=== PATIENT | female | born 1945 | race Caucasian/White ===

== ENCOUNTER 2016-11-06 23:57 | Emergency (ER) | payer OTHER ==
[~2016-11-06] VITALS: Ht 162.6 cm; Wt 84.5 kg
[~2016-11-06 23:57] MED LIST: BACID1 CAP PO; CARAFATE1 GM PO; CELEXA20 MG PO; COLACE100 MG PO; HUMALOG100 UNIT/2 SC; LIORESAL10 MG PO; LOTENSIN20 MG PO; LOVENOX40 MG/0.4 SC; MILK OF MAGN PO; MIRALAX17 GM PO; NEURONTIN300 MG PO; REMEDY NUTRASHI59 ML TP; TOPROL XL25 MG PO; TYLENOL REGULA325 MG PO; VICODIN 5-3001 EACH PO; VOLTAREN 1% GE100 GM TP; ZOFRAN4 MG PO
[2016-11-07] MEDS ORDERED: BREO ELLIPTA I1 EACH IH (00:48)
[2016-11-07] MEDS ORDERED: ZITHROMAX Z-PA250 MG PO (00:48)
[2016-11-07] MEDS ORDERED: PROAIR HFA8.5 GM IH (00:48)
[2016-11-07 01:22] VITALS: BP 142/89
== END 2016-11-07 01:22 | disposition home or self-care (01) ==
LOC: EXP 23:57 → EME 23:57 → EXP 11-07 01:22
DX: J20.9 Acute bronchitis, unspecified (principal); J45.901 Unspecified asthma with (acute) exacerbation; Z76.0 Encounter for issue of repeat prescription; T48.6X6A Underdosing of antiasthmatics, initial encounter; Z91.128 Patient's intentional underdosing of medication regimen for other reason; F17.200 Nicotine dependence, unspecified, uncomplicated; E11.9 Type 2 diabetes mellitus without complications; Z79.4 Long term (current) use of insulin; K21.9 Gastro-esophageal reflux disease without esophagitis; F32.9 Major depressive disorder, single episode, unspecified; F41.9 Anxiety disorder, unspecified
CPT/HCPCS: 71020; 94640; 99281; 99284

== ENCOUNTER 2016-11-09 06:14 | Emergency (ER) | payer OTHER ==
[~2016-11-09] VITALS: Ht 162.6 cm; Wt 79.8 kg
[~2016-11-09 06:14] MED LIST changes: +BREO ELLIPTA I1 EACH IH; +PROAIR HFA8.5 GM IH; +ZITHROMAX Z-PA250 MG PO
[2016-11-09 07:07] LABS: ADD MIUA? NO; BILIRUBIN NEGATIVE; BLOOD NEGATIVE; COLOR YELLOW ((YELLOW)); GLUCOSE (STRIP) NEGATIVE; KETONES NEGATIVE; LEUKOCYTES NEGATIVE; NITRITE NEGATIVE; PROTEIN (STRIP) NEGATIVE; SPECIFIC GRAVITY 1.013 (1.000-1.030); UCUL ADDED? NO; UROBILINOGEN 0.2 MG/DL (0.2-1.0)
[2016-11-09 07:14] LABS: EOSINOPHIL (%) 3.1 % (0-5); EOSINOPHIL COUNT 0.3 K/uL (0-0.3); IMMATURE GRANULOCYTE (%) 0.5 % (0.0-0.7); IMMATURE GRANULOCYTE COUNT 0.1 K/uL; INSTRUMENT ABS NEUTROPHIL CT 6.4 K/uL; LYMPHOCYTE COUNT 2.2 K/uL (1.0-2.8); MCH 29.6 PG (29.0-34.0); MCHC 32.8 G/DL (30.0-36.0); MCV 90.2 FL (83-99); MEAN PLAT.VOLUME 12.1 uM^3 (9.5-12.4); MONOCYTE (%) 9.4 % (3-12); MONOCYTE COUNT 0.9 K/uL (0-0.8); NEUTROPHIL (%) 64.1 % (45-76); NEUTROPHIL COUNT 6.4 K/uL (1.8-6.4); PLATELET COUNT 211 K/uL (156-360); RBC DIS.WIDTH-CV 13.3 % (11.8-14.6); RBC DIS.WIDTH-SD 44.3 % (39-53); RED BLOOD COUNT 3.99 M/uL (3.80-5.20); WHITE BLOOD COUNT 9.9 K/uL (4.1-10.2)
[2016-11-09 07:48] LABS: ALKALINE PHOSPHATASE 95 IU/L (3-129); ANION GAP 4 MEQ/L (2-14); CHLORIDE 106 MEQ/L (99-109); GFR ESTIMATE (CALCULATED) > 59 mL/min/; GLUCOSE 158 mg/dL (70-99); POTASSIUM 5.6 MEQ/L (3.7-5.4); SAMPLE HEMOLYSIS CHECK 0; SAMPLE ICTERIC CHECK 0; SAMPLE LIPEMIA CHECK 0; SODIUM 136 MEQ/L (136-147); TOTAL BILIRUBIN 0.5 MG/DL (0.0-1.0); UREA NITROGEN (BUN) 14 mg/dL (9-23)
[2016-11-09 11:59] VITALS: BP 133/70
== END 2016-11-09 12:01 | disposition home health service (06) ==
LOC: EME 06:14
PROVIDERS: Emergency Medicine
DX: R53.1 Weakness (principal); I11.0 Hypertensive heart disease with heart failure; I50.9 Heart failure, unspecified; K21.9 Gastro-esophageal reflux disease without esophagitis; F41.9 Anxiety disorder, unspecified; F17.200 Nicotine dependence, unspecified, uncomplicated
CPT/HCPCS: 71020; 80053; 81003; 85025; 90832; 93005; 99281; 99284

== ENCOUNTER 2016-12-10 12:43 | Emergency (ER) | payer OTHER ==
[~2016-12-10] VITALS: Ht 162.6 cm; Wt 84.7 kg
[2016-12-10 13:00] VITALS: BP 128/60
[2016-12-10] MEDS ORDERED: PROCTOFOAM-HC10 GM PR ×2 (13:14→13:25)
== END 2016-12-10 13:28 | disposition home or self-care (01) ==
LOC: EME 12:43
DX: K64.4 Residual hemorrhoidal skin tags (principal); K64.8 Other hemorrhoids; Z88.2 Allergy status to sulfonamides; Z88.6 Allergy status to analgesic agent
CPT/HCPCS: 99281; 99283

== ENCOUNTER 2016-12-19 20:03 | Emergency (ER) | payer OTHER ==
[~2016-12-19] VITALS: Ht 162.6 cm; Wt 85.0 kg
[~2016-12-19 20:03] MED LIST changes: +PROCTOFOAM-HC10 GM PR
[2016-12-19 20:17] VITALS: BP 101/50
[2016-12-19] MEDS ORDERED: ANUSOL-HC21 GM PR (22:07)
== END 2016-12-19 22:30 | disposition home or self-care (01) ==
LOC: EME 20:03
DX: M79.604 Pain in right leg (principal); K64.4 Residual hemorrhoidal skin tags; I25.2 Old myocardial infarction; M06.9 Rheumatoid arthritis, unspecified; E11.9 Type 2 diabetes mellitus without complications; F17.200 Nicotine dependence, unspecified, uncomplicated; Z79.4 Long term (current) use of insulin
CPT/HCPCS: 73590; 99281; 99283

== ENCOUNTER 2017-02-22 22:17 | Emergency (ER) | payer OTHER ==
[~2017-02-22] VITALS: Ht 162.6 cm; Wt 81.3 kg
[~2017-02-22 22:17] MED LIST changes: +ANUSOL-HC21 GM PR
[2017-02-22 23:54] LABS: HEMATOCRIT 40.4 % (36.0-46.0); MCH 30.6 PG (29.0-34.0); MCHC 34.7 G/DL (30.0-36.0); MCV 88.2 FL (83-99); MEAN PLAT.VOLUME 12.3 uM^3 (9.5-12.4); PLATELET COUNT 184 K/uL (156-360); RBC DIS.WIDTH-CV 13.8 % (11.8-14.6); RBC DIS.WIDTH-SD 44.6 % (39-53); RED BLOOD COUNT 4.58 M/uL (3.80-5.20)
[2017-02-23 00:12] LABS: CHLORIDE 103 mEq/L (99-109); POTASSIUM 4.6 mEq/L (3.7-5.4); SODIUM 136 mEq/L (136-147)
[2017-02-23 00:15] LABS: GLUCOSE 140 mg/dL (70-99)
[2017-02-23 00:16] LABS: ANION GAP 7 MEQ/L (2-14); TOTAL BILIRUBIN 0.7 mg/dL (0.0-1.0)
[2017-02-23 00:18] LABS: ALKALINE PHOSPHATASE 54 IU/L (3-129); GFR ESTIMATE (CALCULATED) 58 mL/min/
[2017-02-23 00:19] LABS: UREA NITROGEN (BUN) 21 mg/dL (9-23)
[2017-02-23] MEDS ORDERED: ULTRACET1 TABLET PO (00:54)
[2017-02-23 01:54] VITALS: BP 148/86
[2017-02-23] MEDS ORDERED: UNABLE TO OBTAIN (01:55)
== END 2017-02-23 01:57 | disposition home or self-care (01) ==
LOC: EME 22:17
PROVIDERS: Physician Assistant
DX: G62.9 Polyneuropathy, unspecified (principal); G89.29 Other chronic pain; I50.9 Heart failure, unspecified; F17.200 Nicotine dependence, unspecified, uncomplicated; Z88.2 Allergy status to sulfonamides; Z88.8 Allergy status to other drugs, medicaments and biological substances
CPT/HCPCS: 80053; 81003; 85027; 99281; 99284

== ENCOUNTER 2017-04-11 03:28 | Emergency (ER) | payer OTHER ==
[~2017-04-11] VITALS: Ht 162.6 cm; Wt 84.8 kg
[~2017-04-11 03:28] MED LIST changes: +ULTRACET1 TABLET PO; +UNABLE TO OBTAIN
[2017-04-11] MEDS ORDERED: ULTRAM50 MG PO (07:20)
[2017-04-11 08:00] VITALS: BP 136/66
== END 2017-04-11 08:00 | disposition home or self-care (01) ==
LOC: EME 03:28
DX: M79.604 Pain in right leg (principal); I73.9 Peripheral vascular disease, unspecified; G89.29 Other chronic pain; I50.9 Heart failure, unspecified; F17.210 Nicotine dependence, cigarettes, uncomplicated; Z88.2 Allergy status to sulfonamides
CPT/HCPCS: 99281; 99284

== ENCOUNTER 2017-04-16 13:11 | Observation (INO) | payer OTHER ==
[~2017-04-16] VITALS: Ht 162.6 cm; Wt 88.8 kg
[~2017-04-16 13:11] MED LIST changes: +ULTRAM50 MG PO
[2017-04-16 16:01] LABS: APPEARANCE CLEAR ((CLEAR)); BILIRUBIN NEGATIVE; BLOOD NEGATIVE; COLOR STRAW ((YELLOW)); GLUCOSE (STRIP) NEGATIVE; KETONES NEGATIVE; LEUKOCYTES NEGATIVE; NITRITE NEGATIVE; PROTEIN (STRIP) NEGATIVE; SPECIFIC GRAVITY 1.008 (1.000-1.030); UROBILINOGEN 0.2 MG/DL (0.2-1.0)
[2017-04-16 16:10] LABS: HEMATOCRIT 40.2 % (36.0-46.0); MCH 31.1 PG (29.0-34.0); MCHC 34.8 G/DL (30.0-36.0); MCV 89.3 FL (83-99); PLATELET COUNT 231 K/uL (156-360); RBC DIS.WIDTH-CV 13.7 % (11.8-14.6); RBC DIS.WIDTH-SD 44.9 % (39-53); WHITE BLOOD COUNT 12.5 K/uL (4.1-10.2)
[2017-04-16 16:21] LABS: ALBUMIN 3.9 g/dL (3.2-4.8); CHLORIDE 102 mEq/L (99-109); SODIUM 138 mEq/L (136-147)
[2017-04-16 16:24] LABS: GLUCOSE 92 mg/dL (70-99); TOTAL PROTEIN 6.7 g/dL (6.4-8.3)
[2017-04-16 16:26] LABS: TOTAL BILIRUBIN 0.2 mg/dL (0.0-1.0)
[2017-04-16 16:27] LABS: ALKALINE PHOSPHATASE 59 IU/L (3-129); CREATININE 1.6 mg/dL (0.6-1.3); GFR ESTIMATE (CALCULATED) 34 mL/min/
[2017-04-16 16:28] LABS: UREA NITROGEN (BUN) 24 mg/dL (9-23)
[2017-04-16 16:29] LABS: AST (GOT) 17 IU/L (2-34)
[2017-04-16 16:30] LABS: ALT (GPT) 9 IU/L (3-49)
[2017-04-16] MEDS ORDERED: VENTOLIN HFA18 GM IH (17:37)
[2017-04-16] MEDS ORDERED: BREO ELLIPTA I1 EACH IH (17:39)
[2017-04-16] MEDS ORDERED: CYMBALTA60 MG PO (17:41)
[2017-04-16] MEDS ORDERED: LEVEMIR100 UNIT/2 SC (17:41)
[2017-04-16] MEDS ORDERED: MYCOSTATIN1 APPLICAT TP (17:42)
[2017-04-16] MEDS ORDERED: LISINOPRIL10 MG PO (17:42)
[2017-04-16] MEDS ORDERED: OXYCODONE HCL5 MG PO (17:42)
[2017-04-16] MEDS ORDERED: VOLTAREN50 MG PO (17:42)
[2017-04-16] MEDS ORDERED: TRAZODONE HCL50 MG PO (17:42)
[2017-04-16 22:21] VITALS: BP 132/60
[2017-04-17 00:35] VITALS: BP 130/59
[2017-04-17 03:48] VITALS: BP 124/56
[2017-04-17 06:04] VITALS: BP 129/69
[2017-04-17 07:18] LABS: C-REACTIVE PROTEIN 6.6 MG/L (0-10); CHLORIDE 106 MEQ/L (99-109); GFR ESTIMATE (CALCULATED) 52 mL/min/; MAGNESIUM 2.1 mg/dl (1.3-2.7); POTASSIUM 5.3 MEQ/L (3.7-5.4); SODIUM 139 MEQ/L (136-147); UREA NITROGEN (BUN) 20 mg/dL (9-23)
[2017-04-17 07:19] LABS: CREATININE 1.1 MG/DL (0.6-1.3); GLUCOSE 160 mg/dL (70-99)
[2017-04-17 11:43] VITALS: BP 122/62
[2017-04-17] MEDS ORDERED: BACLOFEN10 MG PO (13:28)
[2017-04-17] MEDS ORDERED: GABAPENTIN600 MG PO (13:28)
[2017-04-18 09:56] LABS: HEMOGLOBIN A1c (GLYCOHEMOGLOB) 6.6 % (Below 5.7)
== END 2017-04-17 14:30 | disposition home or self-care (01) ==
LOC: EME 13:11 → EDOF 19:28 → ENRESERV 19:35 → 5WEST 20:50
PROVIDERS: Internal Medicine; Nurse Practitioner Family; Physician Assistant Medical
DX: E87.5 Hyperkalemia (principal); N17.9 Acute kidney failure, unspecified; E86.0 Dehydration; I12.9 Hypertensive chronic kidney disease with stage 1 through stage 4 chronic kidney disease, or unspecified chronic kidney disease; N18.4 Chronic kidney disease, stage 4 (severe); L40.50 Arthropathic psoriasis, unspecified; B35.6 Tinea cruris; E11.22 Type 2 diabetes mellitus with diabetic chronic kidney disease; E11.649 Type 2 diabetes mellitus with hypoglycemia without coma; G89.29 Other chronic pain; R26.89 Other abnormalities of gait and mobility; F17.210 Nicotine dependence, cigarettes, uncomplicated; E11.40 Type 2 diabetes mellitus with diabetic neuropathy, unspecified; E11.319 Type 2 diabetes mellitus with unspecified diabetic retinopathy without macular edema; I73.9 Peripheral vascular disease, unspecified; E03.9 Hypothyroidism, unspecified; K21.9 Gastro-esophageal reflux disease without esophagitis; F32.9 Major depressive disorder, single episode, unspecified; F41.9 Anxiety disorder, unspecified; Z79.4 Long term (current) use of insulin; Z88.1 Allergy status to other antibiotic agents; Z88.2 Allergy status to sulfonamides; I25.10 Atherosclerotic heart disease of native coronary artery without angina pectoris; E78.5 Hyperlipidemia, unspecified; M81.0 Age-related osteoporosis without current pathological fracture; E55.9 Vitamin D deficiency, unspecified; Z90.710 Acquired absence of both cervix and uterus
CPT/HCPCS: 72131; 80048; 80053; 81003; 82948; 83036; 83735; 85027; 85651; 86140; 93005; 94640; 94640 76; 99202; G0378; G8978 GP CJ; G8979 GP CI; G8980 CJ; G8987 GO CJ; G8988 CI; G8989 CJ; J7030; J7512

== ENCOUNTER 2017-05-07 07:06 | Emergency (ER) | payer OTHER ==
[~2017-05-07] VITALS: Ht 162.6 cm; Wt 62.7 kg
[~2017-05-07 07:06] MED LIST changes: +BACLOFEN10 MG PO; +CYMBALTA60 MG PO; +GABAPENTIN600 MG PO; +LEVEMIR100 UNIT/2 SC; +LISINOPRIL10 MG PO; +MYCOSTATIN1 APPLICAT TP; +OXYCODONE HCL5 MG PO; +TRAZODONE HCL50 MG PO; +VENTOLIN HFA18 GM IH; +VOLTAREN50 MG PO
[2017-05-07 08:00] LABS: BASOPHIL (%) 0.7 % (0-1); BASOPHIL COUNT 0.1 K/uL (0-0.1); EOSINOPHIL (%) 3.2 % (0-5); EOSINOPHIL COUNT 0.3 K/uL (0-0.3); HEMATOCRIT 38.1 % (36.0-46.0); HEMOGLOBIN 13.2 G/DL (11.9-15.5); IMMATURE GRANULOCYTE (%) 0.4 % (0.0-0.7); LYMPHOCYTE (%) 23.8 % (15-42); LYMPHOCYTE COUNT 2.3 K/uL (1.0-2.8); MCH 30.6 PG (29.0-34.0); MCHC 34.6 G/DL (30.0-36.0); MCV 88.2 FL (83-99); MONOCYTE (%) 7.6 % (3-12); MONOCYTE COUNT 0.7 K/uL (0-0.8); NEUTROPHIL (%) 64.3 % (45-76); NEUTROPHIL COUNT 6.2 K/uL (1.8-6.4); PLATELET COUNT 231 K/uL (156-360); RBC DIS.WIDTH-CV 13.6 % (11.8-14.6); RBC DIS.WIDTH-SD 43.8 % (39-53); RED BLOOD COUNT 4.32 M/uL (3.80-5.20); WHITE BLOOD COUNT 9.7 K/uL (4.1-10.2)
[2017-05-07 08:12] LABS: CHLORIDE 101 mEq/L (99-109); POTASSIUM 4.8 mEq/L (3.7-5.4); SODIUM 136 mEq/L (136-147)
[2017-05-07 08:14] LABS: GLUCOSE 166 mg/dL (70-99)
[2017-05-07 08:18] LABS: GFR ESTIMATE (CALCULATED) 58 mL/min/
[2017-05-07 08:19] LABS: UREA NITROGEN (BUN) 20 mg/dL (9-23)
[2017-05-07] MEDS ORDERED: PERCOCET 5/31 TABLET PO ×2 (10:23→10:26)
[2017-05-07 11:14] VITALS: BP 140/76
== END 2017-05-07 11:14 | disposition home or self-care (01) ==
LOC: EME 07:06
PROVIDERS: Emergency Medicine
DX: S70.01XA Contusion of right hip, initial encounter (principal); M16.0 Bilateral primary osteoarthritis of hip; I25.2 Old myocardial infarction; I11.0 Hypertensive heart disease with heart failure; I50.9 Heart failure, unspecified; K21.9 Gastro-esophageal reflux disease without esophagitis; J45.909 Unspecified asthma, uncomplicated; I73.9 Peripheral vascular disease, unspecified; G62.9 Polyneuropathy, unspecified; L40.50 Arthropathic psoriasis, unspecified; F41.9 Anxiety disorder, unspecified; F32.9 Major depressive disorder, single episode, unspecified; F17.200 Nicotine dependence, unspecified, uncomplicated; W07.XXXA Fall from chair, initial encounter; Z79.4 Long term (current) use of insulin; Z88.2 Allergy status to sulfonamides; Z88.1 Allergy status to other antibiotic agents
CPT/HCPCS: 71045; 73502; 80048; 81003; 85025; 93005; 99281; 99284; G8978 GP CI; G8979 GP CH; G8987 GO CI; G8988 GO CH; J2270

== ENCOUNTER 2017-05-20 16:28 | Emergency (ER) | payer OTHER ==
[~2017-05-20] VITALS: Ht 162.6 cm; Wt 80.9 kg
[~2017-05-20 16:28] MED LIST changes: +PERCOCET 5/31 TABLET PO
[2017-05-20 17:39] LABS: HEMATOCRIT 38.6 % (36.0-46.0); HEMOGLOBIN 13.9 G/DL (11.9-15.5); MCH 30.7 PG (29.0-34.0); MCV 85.2 FL (83-99); PLATELET COUNT 242 K/uL (156-360); RBC DIS.WIDTH-SD 40.4 % (39-53); RED BLOOD COUNT 4.53 M/uL (3.80-5.20); WHITE BLOOD COUNT 12.1 K/uL (4.1-10.2)
[2017-05-20 17:52] LABS: ALBUMIN 3.9 g/dL (3.2-4.8)
[2017-05-20 17:53] LABS: CHLORIDE 98 mEq/L (99-109); SODIUM 132 mEq/L (136-147)
[2017-05-20 17:55] LABS: GLUCOSE 117 mg/dL (70-99); TOTAL PROTEIN 6.3 g/dL (6.4-8.3)
[2017-05-20 17:57] LABS: TOTAL BILIRUBIN 0.5 mg/dL (0.0-1.0)
[2017-05-20 17:58] LABS: ALKALINE PHOSPHATASE 132 IU/L (3-129)
[2017-05-20 17:59] LABS: CREATININE 1.3 mg/dL (0.6-1.3); GFR ESTIMATE (CALCULATED) 43 mL/min/
[2017-05-20 18:00] LABS: AST (GOT) 17 IU/L (2-34); UREA NITROGEN (BUN) 30 mg/dL (9-23)
[2017-05-20 18:01] LABS: ALT (GPT) 9 IU/L (3-49)
[2017-05-20 18:02] LABS: LIPASE 6 U/L (1.0-51.0)
[2017-05-20] MEDS ORDERED: CIPRO500 MG PO (19:11)
[2017-05-20] MEDS ORDERED: LOPERAMIDE2 MG PO (19:11)
[2017-05-20] MEDS ORDERED: LEVEMIR100 UNIT/2 SC (19:17)
[2017-05-20] MEDS ORDERED: DULOXETINE HCL60 MG PO (19:17)
[2017-05-20] MEDS ORDERED: OXAYDO5 MG PO (19:19)
[2017-05-20] MEDS ORDERED: TRAZODONE HCL50 MG PO ×2 (19:19→19:20)
[2017-05-20] MEDS ORDERED: DICLOFENAC SODI50 MG PO (19:20)
[2017-05-20] MEDS ORDERED: NYSTATIN15 GM TP (19:20)
[2017-05-20] MEDS ORDERED: NEURONTIN600 MG PO (19:21)
[2017-05-20] MEDS ORDERED: METOPROLOL SUCC25 MG PO (19:22)
[2017-05-20] MEDS ORDERED: HUMALOG100 UNIT/2 SC (19:23)
[2017-05-20] MEDS ORDERED: MIRALAX17 GM PO (19:23)
[2017-05-20] MEDS ORDERED: BREO ELLIPTA I1 EACH IH (19:24)
[2017-05-20] MEDS ORDERED: VENTOLIN HFA18 GM IH (19:24)
[2017-05-20 21:08] VITALS: BP 145/60
== END 2017-05-20 21:10 | disposition home or self-care (01) ==
LOC: EME 16:28
PROVIDERS: Emergency Medicine Emergency Medical Services
DX: K52.9 Noninfective gastroenteritis and colitis, unspecified (principal); E86.0 Dehydration; K57.30 Diverticulosis of large intestine without perforation or abscess without bleeding; K64.4 Residual hemorrhoidal skin tags; I10 Essential (primary) hypertension; J45.909 Unspecified asthma, uncomplicated; Z79.4 Long term (current) use of insulin; F17.200 Nicotine dependence, unspecified, uncomplicated
CPT/HCPCS: 74177; 80053; 81003; 83690; 85027; 99281; 99285; J2270

== ENCOUNTER 2017-05-25 11:23 | Inpatient (IN) | payer OTHER ==
[~2017-05-25] VITALS: Ht 162.6 cm; Wt 86.6 kg
[~2017-05-25 11:23] MED LIST changes: +CIPRO500 MG PO; +DICLOFENAC SODI50 MG PO; +DULOXETINE HCL60 MG PO; +LOPERAMIDE2 MG PO; +METOPROLOL SUCC25 MG PO; +NEURONTIN600 MG PO; +NYSTATIN15 GM TP; +OXAYDO5 MG PO
[2017-05-25] MEDS ORDERED: METHOCARBAMOL750 MG PO (14:54)
[2017-05-25 16:52] VITALS: BP 166/71
[2017-05-25 18:32] LABS: HEMATOCRIT 40.2 % (36.0-46.0); HEMOGLOBIN 13.6 G/DL (11.9-15.5); MCHC 33.8 G/DL (30.0-36.0); MCV 88.5 FL (83-99); PLATELET COUNT 235 K/uL (156-360); RBC DIS.WIDTH-CV 13.4 % (11.8-14.6); RBC DIS.WIDTH-SD 43.8 % (39-53); RED BLOOD COUNT 4.54 M/uL (3.80-5.20); WHITE BLOOD COUNT 10.3 K/uL (4.1-10.2)
[2017-05-25 18:55] LABS: ALKALINE PHOSPHATASE 100 IU/L (3-129); ALT (GPT) 7 IU/L (3-49); AST (GOT) 13 IU/L (2-34); CHLORIDE 102 MEQ/L (99-109); GFR ESTIMATE (CALCULATED) 58 mL/min/; GLUCOSE 135 mg/dL (70-99); POTASSIUM 4.4 MEQ/L (3.7-5.4); SODIUM 137 MEQ/L (136-147); TOTAL BILIRUBIN 0.5 MG/DL (0.0-1.0); TOTAL PROTEIN 6.1 G/DL (6.4-8.3); UREA NITROGEN (BUN) 22 mg/dL (9-23)
[2017-05-25 19:44] VITALS: BP 129/60
[2017-05-26 00:02] VITALS: BP 140/75
[2017-05-26 02:48] VITALS: BP 116/56
[2017-05-26 08:16] VITALS: BP 160/54
[2017-05-26 12:34] VITALS: BP 171/76
[2017-05-26 16:00] VITALS: BP 131/74
[2017-05-27 00:11] VITALS: BP 138/63
[2017-05-27 09:06] VITALS: BP 120/57
[2017-05-27 13:12] VITALS: BP 152/69
[2017-05-27 16:06] VITALS: BP 145/82
[2017-05-27 23:34] VITALS: BP 129/59
[2017-05-28 07:59] LABS: HEMATOCRIT 42.3 % (36.0-46.0); HEMOGLOBIN 14.1 G/DL (11.9-15.5); MCH 29.6 PG (29.0-34.0); MCHC 33.3 G/DL (30.0-36.0); MCV 88.9 FL (83-99); PLATELET COUNT 228 K/uL (156-360); RBC DIS.WIDTH-CV 13.3 % (11.8-14.6); RBC DIS.WIDTH-SD 43.7 % (39-53); RED BLOOD COUNT 4.76 M/uL (3.80-5.20); WHITE BLOOD COUNT 8.4 K/uL (4.1-10.2)
[2017-05-28 08:12] VITALS: BP 157/69
[2017-05-28 08:24] LABS: CHLORIDE 99 MEQ/L (99-109); CREATININE 1.1 MG/DL (0.6-1.3); GFR ESTIMATE (CALCULATED) 52 mL/min/; GLUCOSE 172 mg/dL (70-99); POTASSIUM 4.7 MEQ/L (3.7-5.4); SODIUM 133 MEQ/L (136-147); UREA NITROGEN (BUN) 22 mg/dL (9-23)
[2017-05-28 11:23] LABS: BILIRUBIN NEGATIVE; BLOOD NEGATIVE; COLOR YELLOW ((YELLOW)); GLUCOSE (STRIP) NEGATIVE; KETONES NEGATIVE; LEUKOCYTES NEGATIVE; NITRITE NEGATIVE; PROTEIN (STRIP) NEGATIVE; UROBILINOGEN 0.2 MG/DL (0.2-1.0)
[2017-05-28 11:29] LABS: APPEARANCE CLEAR ((CLEAR)); UCUL ADDED? NO
[2017-05-28 15:34] VITALS: BP 148/68; BP 159/70
[2017-05-29 01:25] VITALS: BP 160/70
[2017-05-29 07:40] VITALS: BP 127/61
[2017-05-29 16:05] VITALS: BP 138/64
[2017-05-30 04:38] LABS: HEMATOCRIT 40.6 % (36.0-46.0); HEMOGLOBIN 13.9 G/DL (11.9-15.5); MCHC 34.2 G/DL (30.0-36.0); MCV 87.7 FL (83-99); PLATELET COUNT 199 K/uL (156-360); RBC DIS.WIDTH-CV 13.2 % (11.8-14.6); RBC DIS.WIDTH-SD 42.5 % (39-53); RED BLOOD COUNT 4.63 M/uL (3.80-5.20); WHITE BLOOD COUNT 9.2 K/uL (4.1-10.2)
[2017-05-30 05:05] LABS: CHLORIDE 100 mEq/L (99-109); POTASSIUM 4.7 mEq/L (3.7-5.4); SODIUM 136 mEq/L (136-147)
[2017-05-30 05:06] LABS: GLUCOSE 153 mg/dL (70-99)
[2017-05-30 05:10] LABS: CREATININE 1.2 mg/dL (0.6-1.3); GFR ESTIMATE (CALCULATED) 47 mL/min/
[2017-05-30 05:11] LABS: UREA NITROGEN (BUN) 30 mg/dL (9-23)
[2017-05-30 07:46] VITALS: BP 162/70
[2017-05-30 15:33] VITALS: BP 167/67
[2017-05-31 01:31] VITALS: BP 130/63
[2017-05-31 05:34] VITALS: BP 136/65
[2017-05-31 08:21] VITALS: BP 166/72
== END 2017-05-31 11:37 | disposition left against medical advice (07) | DRG 552 ==
LOC: EME 11:23 → EDOF 14:13 → 3EAST 14:13 → ENRESERV 14:17 → EDOF 14:32 → ENRESERV 14:51 → 3EAST 16:40
PROVIDERS: Hospitalist; Physician Assistant
DX: M48.061 Spinal stenosis, lumbar region without neurogenic claudication (principal); M51.26 Other intervertebral disc displacement, lumbar region; M51.46 Schmorl's nodes, lumbar region; I11.9 Hypertensive heart disease without heart failure; I25.10 Atherosclerotic heart disease of native coronary artery without angina pectoris; F43.25 Adjustment disorder with mixed disturbance of emotions and conduct; F43.23 Adjustment disorder with mixed anxiety and depressed mood; E11.40 Type 2 diabetes mellitus with diabetic neuropathy, unspecified; E11.51 Type 2 diabetes mellitus with diabetic peripheral angiopathy without gangrene; Z79.4 Long term (current) use of insulin; E03.9 Hypothyroidism, unspecified; E78.5 Hyperlipidemia, unspecified; F17.210 Nicotine dependence, cigarettes, uncomplicated; F60.9 Personality disorder, unspecified; F91.9 Conduct disorder, unspecified; G31.84 Mild cognitive impairment of uncertain or unknown etiology; Z91.19 Patient's noncompliance with other medical treatment and regimen
CPT/HCPCS: 71250; 72149; 72158; 80048; 80053; 81003; 82948; 85027; 93971; 94640; 94640 76; 99202; 99281; 99285; A6214; J1630; J1650; J1815; J3010

== ENCOUNTER 2017-06-08 12:20 | Emergency (ER) | payer OTHER ==
[~2017-06-08] VITALS: Ht 162.6 cm; Wt 87.5 kg
[~2017-06-08 12:20] MED LIST changes: +METHOCARBAMOL750 MG PO
[2017-06-08] MEDS ORDERED: PERCOCET 5/31 TABLET PO (14:17)
[2017-06-08 16:07] VITALS: BP 133/61
== END 2017-06-08 16:21 | disposition home or self-care (01) ==
LOC: EME 12:20
PROC: 2W3QX1Z Immobilization of Right Lower Leg using Splint (ICD-10-PCS; principal; 2017-06-08)
DX: S92.354A Nondisplaced fracture of fifth metatarsal bone, right foot, initial encounter for closed fracture (principal); M25.551 Pain in right hip; M25.552 Pain in left hip; M54.5 Low back pain; W18.30XA Fall on same level, unspecified, initial encounter; Y92.531 Health care provider office as the place of occurrence of the external cause; I11.0 Hypertensive heart disease with heart failure; I50.9 Heart failure, unspecified; K21.9 Gastro-esophageal reflux disease without esophagitis; E11.9 Type 2 diabetes mellitus without complications; J45.909 Unspecified asthma, uncomplicated; G62.9 Polyneuropathy, unspecified; I73.9 Peripheral vascular disease, unspecified; F41.9 Anxiety disorder, unspecified; F32.9 Major depressive disorder, single episode, unspecified; F17.200 Nicotine dependence, unspecified, uncomplicated; Z79.4 Long term (current) use of insulin; Z88.2 Allergy status to sulfonamides; Z88.8 Allergy status to other drugs, medicaments and biological substances
CPT/HCPCS: 71045; 72100; 73502; 73630; 99281; 99285; G8987 GO CL; G8988 GO CK

== ENCOUNTER 2017-08-01 23:27 | Emergency (ER) | payer OTHER ==
[~2017-08-01] VITALS: Ht 162.6 cm; Wt 89.1 kg
[2017-08-02 00:46] LABS: HEMATOCRIT 40.2 % (36.0-46.0); HEMOGLOBIN 13.9 G/DL (11.9-15.5); MCH 30.5 PG (29.0-34.0); MCHC 34.6 G/DL (30.0-36.0); MCV 88.2 FL (83-99); PLATELET COUNT 161 K/uL (156-360); RBC DIS.WIDTH-CV 13.3 % (11.8-14.6); RBC DIS.WIDTH-SD 43.1 % (39-53); RED BLOOD COUNT 4.56 M/uL (3.80-5.20); WHITE BLOOD COUNT 12.5 K/uL (4.1-10.2)
[2017-08-02 01:08] LABS: CHLORIDE 102 mEq/L (99-109); POTASSIUM 4.5 mEq/L (3.7-5.4); SODIUM 137 mEq/L (136-147)
[2017-08-02 01:10] LABS: GLUCOSE 120 mg/dL (70-99)
[2017-08-02 01:11] LABS: TOTAL PROTEIN 6.5 g/dL (6.4-8.3)
[2017-08-02 01:12] LABS: TOTAL BILIRUBIN 0.4 mg/dL (0.0-1.0)
[2017-08-02 01:14] LABS: ALKALINE PHOSPHATASE 64 IU/L (3-129); CREATININE 1.1 mg/dL (0.6-1.3); GFR ESTIMATE (CALCULATED) 52 mL/min/
[2017-08-02 01:15] LABS: UREA NITROGEN (BUN) 20 mg/dL (9-23)
[2017-08-02 01:16] LABS: AST (GOT) 14 IU/L (2-34); DIRECT BILIRUBIN 0.2 mg/dL (0.0-0.3)
[2017-08-02 01:17] LABS: ALT (GPT) 9 IU/L (3-49)
[2017-08-02 01:18] LABS: LIPASE 5 U/L (1.0-51.0)
[2017-08-02 01:21] LABS: APPEARANCE CLEAR ((CLEAR)); BILIRUBIN NEGATIVE; BLOOD SMALL; COLOR STRAW ((YELLOW)); GLUCOSE (STRIP) NEGATIVE; KETONES NEGATIVE; LEUKOCYTES NEGATIVE; NITRITE NEGATIVE; PROTEIN (STRIP) NEGATIVE; SPECIFIC GRAVITY 1.004 (1.000-1.030); UROBILINOGEN 0.2 MG/DL (0.2-1.0)
[2017-08-02 01:23] LABS: BACTERIA RARE /HPF; EPITHELIAL CELLS RARE /HPF; MUCUS TRACE /LPF; RED BLOOD CELLS 0-5 /HPF (0-5); UCUL ADDED? NO; WHITE BLOOD CELLS 0-5 /HPF (0-5)
[2017-08-02 02:30] VITALS: BP 124/55
[2017-08-02 08:10] LABS: THYROTROPIN (TSH) 1.5 MIU/L (0.4-5.5)
[2017-08-02 09:30] LABS: HEMOGLOBIN A1c (GLYCOHEMOGLOB) 6.6 % (Below 5.7)
== END 2017-08-02 04:23 | disposition home or self-care (01) ==
LOC: EME 23:27
PROVIDERS: Emergency Medicine
DX: M79.89 Other specified soft tissue disorders (principal); E86.0 Dehydration; K57.30 Diverticulosis of large intestine without perforation or abscess without bleeding; K86.1 Other chronic pancreatitis; E11.40 Type 2 diabetes mellitus with diabetic neuropathy, unspecified; Z79.4 Long term (current) use of insulin; I10 Essential (primary) hypertension; I73.9 Peripheral vascular disease, unspecified; J45.909 Unspecified asthma, uncomplicated; L40.50 Arthropathic psoriasis, unspecified; K21.9 Gastro-esophageal reflux disease without esophagitis; F41.9 Anxiety disorder, unspecified; F32.9 Major depressive disorder, single episode, unspecified; F17.200 Nicotine dependence, unspecified, uncomplicated; Z88.2 Allergy status to sulfonamides; Z88.8 Allergy status to other drugs, medicaments and biological substances
CPT/HCPCS: 71045; 74176; 80048; 80076; 81003; 83036; 83690; 84443; 85027; 87086

== ENCOUNTER 2017-08-24 07:01 | Emergency (ER) | payer OTHER ==
[~2017-08-24] VITALS: Ht 162.6 cm; Wt 87.0 kg
[2017-08-24] MEDS ORDERED: FLEXERIL10 MG PO (10:25)
[2017-08-24 11:07] VITALS: BP 108/70
== END 2017-08-24 11:08 | disposition home or self-care (01) ==
LOC: EME 07:01
DX: M54.41 Lumbago with sciatica, right side (principal); Z91.81 History of falling; K21.9 Gastro-esophageal reflux disease without esophagitis; J45.909 Unspecified asthma, uncomplicated; E11.40 Type 2 diabetes mellitus with diabetic neuropathy, unspecified; I10 Essential (primary) hypertension; L40.50 Arthropathic psoriasis, unspecified; F41.9 Anxiety disorder, unspecified; F32.9 Major depressive disorder, single episode, unspecified; Z90.710 Acquired absence of both cervix and uterus; Z88.2 Allergy status to sulfonamides; Z88.1 Allergy status to other antibiotic agents
CPT/HCPCS: 72100; 73502; 99281; 99284

== ENCOUNTER 2017-11-01 22:13 | Inpatient (IN) | payer OTHER ==
[~2017-11-01] VITALS: Ht 162.6 cm; Wt 94.0 kg
[~2017-11-01 22:13] MED LIST changes: +FLEXERIL10 MG PO
[2017-11-01 22:39] LABS: HEMOGLOBIN 14.2 G/DL (11.9-15.5); MCH 30.4 PG (29.0-34.0); MCHC 34.6 G/DL (30.0-36.0); MCV 87.8 FL (83-99); RBC DIS.WIDTH-CV 13.7 % (11.8-14.6); RBC DIS.WIDTH-SD 44.2 % (39-53); RED BLOOD COUNT 4.67 M/uL (3.80-5.20); WHITE BLOOD COUNT 12.6 K/uL (4.1-10.2)
[2017-11-01 22:46] LABS: CHLORIDE 98 mEq/L (99-109); POTASSIUM 4.4 mEq/L (3.7-5.4); SODIUM 136 mEq/L (136-147)
[2017-11-01 22:48] LABS: GLUCOSE 121 mg/dL (70-99)
[2017-11-01 22:52] LABS: CREATININE 1.1 mg/dL (0.6-1.3); GFR ESTIMATE (CALCULATED) 52 mL/min/
[2017-11-01 22:53] LABS: UREA NITROGEN (BUN) 22 mg/dL (9-23)
[2017-11-01 23:21] LABS: PLAT.SUFFICIENCY ADEQUATE; PLATELET COUNT 183 K/uL (156-360)
[2017-11-02] VITALS (7 sets, daily range): BP systolic 124–191; BP diastolic 60–86
[2017-11-02] MEDS ORDERED: OXYCODONE-APAP1 EAC6 PO (11:47)
[2017-11-02] MEDS ORDERED: ZANAFLEX4 M1 PO (11:48)
[2017-11-03 03:03] VITALS: BP 177/78
[2017-11-03 06:26] LABS: BASOPHIL (%) 0.1 % (0-1); EOSINOPHIL (%) 0 % (0-5); HEMOGLOBIN 13.1 G/DL (11.9-15.5); IMMATURE GRANULOCYTE (%) 0.8 % (0.0-0.7); LYMPHOCYTE (%) 6.8 % (15-42); LYMPHOCYTE COUNT 1.3 K/uL (1.0-2.8); MCH 30.1 PG (29.0-34.0); MCHC 34.5 G/DL (30.0-36.0); MCV 87.4 FL (83-99); MONOCYTE (%) 5.1 % (3-12); NEUTROPHIL (%) 87.2 % (45-76); NEUTROPHIL COUNT 16.1 K/uL (1.8-6.4); PLATELET COUNT 172 K/uL (156-360); RBC DIS.WIDTH-CV 13.8 % (11.8-14.6); RBC DIS.WIDTH-SD 44.1 % (39-53); RED BLOOD COUNT 4.35 M/uL (3.80-5.20); WHITE BLOOD COUNT 18.5 K/uL (4.1-10.2)
[2017-11-03 06:44] LABS: ALBUMIN 3.8 G/DL (3.2-4.8); ALKALINE PHOSPHATASE 45 IU/L (3-129); ALT (GPT) 6 IU/L (3-49); AST (GOT) 10 IU/L (2-34); CHLORIDE 98 MEQ/L (99-109); CREATININE 1.1 MG/DL (0.6-1.3); GFR ESTIMATE (CALCULATED) 52 mL/min/; POTASSIUM 4.5 MEQ/L (3.7-5.4); SODIUM 134 MEQ/L (136-147); TOTAL BILIRUBIN 0.5 MG/DL (0.0-1.0); TOTAL PROTEIN 5.8 G/DL (6.4-8.3); UREA NITROGEN (BUN) 29 mg/dL (9-23)
[2017-11-03 06:48] LABS: GLUCOSE 329 mg/dL (70-99)
[2017-11-03 13:01] LABS: HEMOGLOBIN A1c (GLYCOHEMOGLOB) 6.9 % (Below 5.7)
== END 2017-11-03 06:33 | disposition left against medical advice (07) | DRG 190 ==
LOC: EME → EDBD 22:13 → EDOF 11-02 00:34 → 5EAST 11-02 00:34
PROVIDERS: Emergency Medicine; Hospitalist
DX: J44.1 Chronic obstructive pulmonary disease with (acute) exacerbation (principal); J18.9 Pneumonia, unspecified organism; R09.02 Hypoxemia; J44.0 Chronic obstructive pulmonary disease with (acute) lower respiratory infection; J20.9 Acute bronchitis, unspecified; I11.0 Hypertensive heart disease with heart failure; E03.9 Hypothyroidism, unspecified; E11.319 Type 2 diabetes mellitus with unspecified diabetic retinopathy without macular edema; E11.40 Type 2 diabetes mellitus with diabetic neuropathy, unspecified; E11.51 Type 2 diabetes mellitus with diabetic peripheral angiopathy without gangrene; K21.9 Gastro-esophageal reflux disease without esophagitis; E78.5 Hyperlipidemia, unspecified; F17.210 Nicotine dependence, cigarettes, uncomplicated; F32.9 Major depressive disorder, single episode, unspecified; F41.9 Anxiety disorder, unspecified; I25.10 Atherosclerotic heart disease of native coronary artery without angina pectoris; M81.0 Age-related osteoporosis without current pathological fracture; I50.9 Heart failure, unspecified; L40.50 Arthropathic psoriasis, unspecified; Z90.710 Acquired absence of both cervix and uterus; Z79.4 Long term (current) use of insulin
CPT/HCPCS: 71046; 80048; 80053; 81003; 82948; 83036; 83880; 85025; 85027; 85379; 87040; 87070; 87205; 87449; 93970; 94640; 94799; 99281; 99284; J0295; J0456; J1650; J1815; J2920; J7050; J7512

== ENCOUNTER 2017-11-15 14:35 | Inpatient (IN) | payer OTHER ==
[~2017-11-15] VITALS: Ht 167.6 cm; Wt 85.3 kg
[~2017-11-15 14:35] MED LIST changes: +OXYCODONE-APAP1 EAC6 PO; +ZANAFLEX4 M1 PO
[2017-11-15 16:03] LABS: APPEARANCE CLEAR ((CLEAR)); BILIRUBIN NEGATIVE; BLOOD SMALL; COLOR YELLOW ((YELLOW)); GLUCOSE (STRIP) 50; KETONES NEGATIVE; LEUKOCYTES NEGATIVE; NITRITE NEGATIVE; PROTEIN (STRIP) NEGATIVE; UROBILINOGEN 0.2 MG/DL (0.2-1.0)
[2017-11-15 16:13] LABS: BACTERIA RARE /HPF; EPITHELIAL CELLS NONE SEEN /HPF; HYALINE CASTS 0-5 /LPF; MUCUS NONE SEEN /LPF; RED BLOOD CELLS 0-5 /HPF (0-5); UCUL ADDED? NO; WHITE BLOOD CELLS 0-5 /HPF (0-5)
[2017-11-15 16:24] LABS: AMPHETAMINE NEGATIVE (500 ng/mL); BARBITURATES NEGATIVE (200 ng/mL); BENZODIAZEPINES NEGATIVE (150 ng/mL); BUPRENORPHINE NEGATIVE (10 ng/mL); COCAINE NEGATIVE (150 ng/mL); METHADONE NEGATIVE (200 ng/mL); METHAMPHETAMINE NEGATIVE (500 ng/mL); OPIATES (MORPHINE) PRESUMPTIVE POSITIVE (100 ng/mL); OXYCODONE NEGATIVE (100 ng/mL); PHENCYCLIDINE NEGATIVE (25 ng/mL); PROPOXYPHENE NEGATIVE (300 ng/mL); THC CANNABINOIDS NEGATIVE (50 ng/mL); TRICYCLIC ANTIDEPRESSANTS NEGATIVE (300 ng/mL)
[2017-11-15 16:27] LABS: CARBON DIOXIDE (BICARBONATE) 31.9 MEQ/L (20-31); HEMATOCRIT 43.3 % (36.0-46.0); HEMOGLOBIN 15.2 G/DL (11.9-15.5); MCH 30.8 PG (29.0-34.0); MCHC 35.1 G/DL (30.0-36.0); MCV 87.7 FL (83-99); PLATELET COUNT 213 K/uL (156-360); RBC DIS.WIDTH-SD 44.7 % (39-53); RED BLOOD COUNT 4.94 M/uL (3.80-5.20); WHITE BLOOD COUNT 17.5 K/uL (4.1-10.2)
[2017-11-15 16:36] LABS: CHLORIDE 104 mEq/L (99-109); POTASSIUM 4.6 mEq/L (3.7-5.4); SODIUM 140 mEq/L (136-147)
[2017-11-15 16:37] LABS: GLUCOSE 220 mg/dL (70-99)
[2017-11-15 16:41] LABS: GFR ESTIMATE (CALCULATED) 58 mL/min/
[2017-11-15 16:42] LABS: UREA NITROGEN (BUN) 17 mg/dL (9-23)
[2017-11-15 16:44] LABS: LIPASE 7 U/L (1.0-51.0)
[2017-11-15 16:46] LABS: TROP-I INTERPRETATION NEGATIVE; TROPONIN-I < 0.01 ng/mL (0.0-0.30)
[2017-11-15 18:37] LABS: CARBOXY HGB 4 % (0-5); COMMENTS - BLOOD GASES C+; DEVICE NC; METHEMOGLOBIN 1.2 % (0-1.5); O2 FLOW 2 L/MIN; O2 SATURATION (CALCULATED) 98.3 % (95-99); PCO2 49 mm Hg (35-45); PO2 90 mm Hg (80-100); SITE LR; TOTAL RESP RATE 16 resp/min; pH 7.36 (7.35-7.45)
[2017-11-15 18:38] LABS: BASE EXCESS 1.4 mEq/L (-3 to +3); BICARBONATE 27.7 mEq/L (22-26)
[2017-11-15] MEDS ORDERED: FLEXERIL10 MG PO (18:56)
[2017-11-16] VITALS (8 sets, daily range): BP systolic 115–192; BP diastolic 53–82
[2017-11-16 05:54] LABS: TROP-I INTERPRETATION NEGATIVE; TROPONIN-I < 0.01 ng/mL (0.0-0.30)
[2017-11-16 06:17] LABS: HDL CHOLESTEROL 63 MG/DL (Desirable>=50); LDL CHOLESTEROL 117 mg/dL (Desirable<100); NON-HDL CHOLESTEROL 136 mg/dL (Desirable<160); TOTAL CHOLESTEROL 199 mg/dL (Desirable<200); TRIGLYCERIDES 93 MG/DL (Normal: <150)
[2017-11-16 09:06] LABS: BASOPHIL (%) 0.3 % (0-1); EOSINOPHIL (%) 0.1 % (0-5); HEMATOCRIT 45.1 % (36.0-46.0); HEMOGLOBIN 15.4 G/DL (11.9-15.5); IMMATURE GRANULOCYTE (%) 0.7 % (0.0-0.7); LYMPHOCYTE (%) 6.5 % (15-42); MCH 30.4 PG (29.0-34.0); MCHC 34.1 G/DL (30.0-36.0); MONOCYTE (%) 0.4 % (3-12); MONOCYTE COUNT 0.1 K/uL (0-0.8); NEUTROPHIL COUNT 13.7 K/uL (1.8-6.4); PLATELET COUNT 215 K/uL (156-360); RBC DIS.WIDTH-CV 14.3 % (11.8-14.6); RBC DIS.WIDTH-SD 45.5 % (39-53); RED BLOOD COUNT 5.07 M/uL (3.80-5.20); WHITE BLOOD COUNT 14.9 K/uL (4.1-10.2)
[2017-11-16 09:19] LABS: LYME DISEASE SEROLOGY SCREEN NEGATIVE (NEGATIVE)
[2017-11-16 09:33] LABS: CHLORIDE 102 MEQ/L (99-109); CREATININE 0.9 MG/DL (0.6-1.3); GFR ESTIMATE (CALCULATED) > 59 mL/min/; POTASSIUM 4.3 MEQ/L (3.7-5.4); SODIUM 140 MEQ/L (136-147); UREA NITROGEN (BUN) 18 mg/dL (9-23)
[2017-11-16 09:34] LABS: GLUCOSE 392 mg/dL (70-99)
[2017-11-16 10:44] LABS: HEMOGLOBIN A1c (GLYCOHEMOGLOB) 6.9 % (Below 5.7)
[2017-11-16 13:57] LABS: TROP-I INTERPRETATION NEGATIVE; TROPONIN-I < 0.01 ng/mL (0.0-0.30)
[2017-11-16] MEDS ORDERED: BACLOFEN20 MG PO (15:24)
[2017-11-17 04:19] VITALS: BP 148/84
[2017-11-17 08:09] VITALS: BP 168/72
[2017-11-17 10:01] LABS: BASOPHIL (%) 0.3 % (0-1); EOSINOPHIL (%) 0.7 % (0-5); EOSINOPHIL COUNT 0.1 K/uL (0-0.3); HEMATOCRIT 40.6 % (36.0-46.0); IMMATURE GRANULOCYTE (%) 0.5 % (0.0-0.7); LYMPHOCYTE (%) 22.3 % (15-42); LYMPHOCYTE COUNT 3.2 K/uL (1.0-2.8); MCH 29.6 PG (29.0-34.0); MCV 89.6 FL (83-99); MONOCYTE (%) 6.8 % (3-12); NEUTROPHIL (%) 69.4 % (45-76); NEUTROPHIL COUNT 10.1 K/uL (1.8-6.4); PLATELET COUNT 221 K/uL (156-360); RBC DIS.WIDTH-CV 14.5 % (11.8-14.6); RBC DIS.WIDTH-SD 47.8 % (39-53); RED BLOOD COUNT 4.53 M/uL (3.80-5.20); WHITE BLOOD COUNT 14.5 K/uL (4.1-10.2)
[2017-11-17 10:03] LABS: HEMOGLOBIN 13.4 G/DL (11.9-15.5)
[2017-11-17 10:21] LABS: CHLORIDE 99 MEQ/L (99-109); CREATININE 0.9 MG/DL (0.6-1.3); GFR ESTIMATE (CALCULATED) > 59 mL/min/; GLUCOSE 299 mg/dL (70-99); POTASSIUM 4.2 MEQ/L (3.7-5.4); SODIUM 138 MEQ/L (136-147); UREA NITROGEN (BUN) 21 mg/dL (9-23)
[2017-11-17 12:10] VITALS: BP 172/73
[2017-11-17 13:40] LABS: TROP-I INTERPRETATION NEGATIVE; TROPONIN-I 0.01 ng/mL (0.0-0.30)
[2017-11-17 15:16] VITALS: BP 167/71
[2017-11-17 19:50] VITALS: BP 148/72
[2017-11-17 22:03] LABS: TROP-I INTERPRETATION NEGATIVE; TROPONIN-I 0.02 ng/mL (0.0-0.30)
[2017-11-17 23:52] VITALS: BP 160/83
[2017-11-18 03:51] VITALS: BP 152/72
[2017-11-18 06:12] LABS: TROP-I INTERPRETATION NEGATIVE; TROPONIN-I < 0.01 ng/mL (0.0-0.30)
[2017-11-18 08:02] VITALS: BP 160/73
== END 2017-11-18 11:39 | disposition left against medical advice (07) | DRG 917 ==
LOC: EME 14:35 → EDOF 11-16 00:06 → 4EAST 11-16 00:06 → 2EAST 11-16 00:06 → ENRESERV 11-16 00:07 → 4EAST 11-16 01:30 → ENRESERV 11-16 16:00 → 2EAST 11-16 17:22
PROVIDERS: Emergency Medicine; Hospitalist; Internal Medicine
PROC: 00JU3ZZ Inspection of Spinal Canal, Percutaneous Approach (ICD-10-PCS; principal; 2017-11-15)
DX: T40.2X1A Poisoning by other opioids, accidental (unintentional), initial encounter (principal); G92 Toxic encephalopathy; R29.6 Repeated falls; B36.9 Superficial mycosis, unspecified; K21.9 Gastro-esophageal reflux disease without esophagitis; I11.0 Hypertensive heart disease with heart failure; I50.9 Heart failure, unspecified; F41.9 Anxiety disorder, unspecified; F32.9 Major depressive disorder, single episode, unspecified; E78.5 Hyperlipidemia, unspecified; E03.9 Hypothyroidism, unspecified; J44.9 Chronic obstructive pulmonary disease, unspecified; E11.40 Type 2 diabetes mellitus with diabetic neuropathy, unspecified; E11.51 Type 2 diabetes mellitus with diabetic peripheral angiopathy without gangrene; R26.9 Unspecified abnormalities of gait and mobility; M81.0 Age-related osteoporosis without current pathological fracture; G89.29 Other chronic pain; M48.061 Spinal stenosis, lumbar region without neurogenic claudication; M48.56XD Collapsed vertebra, not elsewhere classified, lumbar region, subsequent encounter for fracture with routine healing; F17.200 Nicotine dependence, unspecified, uncomplicated; Z79.4 Long term (current) use of insulin; Z79.891 Long term (current) use of opiate analgesic; Z88.2 Allergy status to sulfonamides
CPT/HCPCS: 36600; 70450; 70551; 71046; 71250; 72131; 74176; 80048; 80061; 81003; 82803; 82945; 82948; 83036; 83690; 84157; 84443; 84484; 84999; 85025; 85027; 86618; 87040; 87070; 87103; 87205; 89051; 92610 GN; 93005; 94640; 94799; 99281; 99285; J0290; J0696; J1450; J1650; J1815; J2270; J2310; J2930; J3370; J7030; J7050